=== PATIENT | male | born 1935 | race Caucasian/White ===

== ENCOUNTER 2025-04-02 06:56 | Emergency (ER) | payer MEDICARE, SELFPAY ==
[2025-04-02] VITALS (7 sets, daily range): BP systolic 111–168; BP diastolic 56–87; BMI 18.9
--- NOTE | 2025-04-02 07:41 | ED.GENMED ---
History of Present Illness
<CONSTANCE Espino - Last Filed: 04/02/25 14:35>
General
Chief Complaint: Male Genito-Urinary Symptoms
Source: patient
Exam Limitations: none
Time Seen by Provider: 04/02/25 06:59
History of Present Illness
History of Present Illness:
89 yr old male with PMH of dementia, enlarge prostate , s/p recent fall (upper trochanter fx surg not required )in March, catheter since Mar 12 removed Mar 20 however reinserted March 21 as due to urinary retention presents from [facility]. Pt was sent for evaluation after he pulled his Hummel catheter on his own. I spoke with Tamara, his daughter over the phone ) . pt with significant dementia currently at this this facility however they are planning on relocating
patient to a facility closer to their home town.
Patient is on blood thinners
Phy Exam
<CONSTANCE Espino - Last Filed: 04/02/25 14:35>
General Physical Exam
General Presentation: no apparent distress
General age: appears stated age
General Skin: warm and dry
General Habitus: elderly
General Mental: confused
General Hydration: appears well hydrated
Cardiovascular Exam
Cardiovascular Exam: regular rate/rhythm, no murmur and normal peripheral pulses
Pulmonary Exam
Pulmonary Exam: lungs clear and no respiratory distress
Genitourinary Exam Male
Exam Male: other (pt presents with catheter removed + small bright red blood at meatus. no Active bleeding )
Neurological Exam
Neurological Exam: alert
Musculoskeletal Exam
Musculoskeletal Exam: full ROM
Skin Exam
Skin Exam: normal color and warm/dry
Psychiatric Exam
Psychiatric Exam: normal mood/affect
Course
<CONSTANCE Espino - Last Filed: 04/02/25 14:35>
Orders/Labs/Results
Orders:
Orders
04/02/25 07:34
Hummel Placement- Treatment ONCE
Reason for insertion: Chronic Hummel on Admit
04/02/25 09:51
Bladder Scan- Treatment ONCE
Vital Signs
Initial and Last Documented VS:
Initial Vital Signs
Pulse Resp BP Pulse Ox
65 23 115/60 98
04/02/25 07:00 04/02/25 07:00 04/02/25 07:00 04/02/25 07:00
Last Documented Vital Signs
Temp Pulse Resp BP Pulse Ox
97.8 F 84 20 168/74 99
04/02/25 07:02 04/02/25 12:00 04/02/25 12:00 04/02/25 12:00 04/02/25 07:46
Director Of Strategic Programs consulted with Physician
Director Of Strategic Programs consulted with physician?: Yes
Name of Physician Consulted: Chantelh
<Mike Medellin MD - Last Filed: 04/02/25 19:23>
Orders/Labs/Results
Orders:
Orders
04/02/25 07:34
Hummel Placement- Treatment ONCE
Reason for insertion: Chronic Hummel on Admit
04/02/25 09:51
Bladder Scan- Treatment ONCE
Vital Signs
Initial and Last Documented VS:
Initial Vital Signs
Pulse Resp BP Pulse Ox
65 23 115/60 98
04/02/25 07:00 04/02/25 07:00 04/02/25 07:00 04/02/25 07:00
Last Documented Vital Signs
Temp Pulse Resp BP Pulse Ox
97.8 F 84 20 168/74 99
04/02/25 07:02 04/02/25 12:00 04/02/25 12:00 04/02/25 12:00 04/02/25 07:46
<CONSTANCE Espino - Last Filed: 04/02/25 14:35>
MDM/Problems Addressed
Differential Diagnosis Includes:
not limited to: hummel catheter dysfunction
MDM/Problems Addressed:
As documented patient is a 89-year-old male with dementia from [facility]. Patient was sent for evaluation of removal of his Hummel catheter. I reviewed patient's med list directly, patient is not anticoagulated.
I [facility] who reports patient had a one-to-one and had gloves initially on but the lathing supervisor remove them and while walking to the bathroom he pulled out his Hummel catheter. He presents awake however very confused. I
spoke with his daughter over the phone. She is aware of this dementia. He had a Hummel placed ever since having a hip injury in March.
Case reviewed with ED physician we attempted to have patient void on his own however he was not able to do so. Hummel catheter was reinserted however I did speak with nursing care facility along with daughter. As per the nursing care facility
daughter will have to arrange appointment with urology. I did speak with daughter stating that this is important to have possibly a void trial to see if patient can void on his own and therefore have the Hummel catheter eventually discontinued to
prevent UTI. They are trying to get patient moved from his present facility to a facility closer to family and daughter will have patient follow-up with urologist closer to their hometown. He is afebrile with stable vital signs.
<CONSTANCE Espino - Last Filed: 04/02/25 14:35>
*Pulse Oximetry
SaO2: 99
Oxygen Mode of Delivery: Room air
Patient hypoxic: no
*Critical Care Note
Total Time (30-74mins, 75-104mins- exclusive of procedures): Not Applicable
ED Attending Note
<CONSTANCE Espino - Last Filed: 04/02/25 14:35>
-
Portions of this chart may have been created with voice recognition software.� Occasional wrong word or��sound alike� substitutions may have occurred due to the inherent limitations of voice recognition software.
<Mike Medellin MD - Last Filed: 04/02/25 19:23>
ED Attending Note
Patient seen and examined by attending physician: Yes
ED Attending Note:
Patient with history of dementia, recent hip fracture, treated nonoperatively, presents to ED for evaluation after patient noted to pull Hummel catheter out while having bowel movement this morning. Upon arrival, patient is alert and awake, but does
not offer any additional information. Patient does not take any blood thinning medications.
Physical Exam
General: no apparent distress, not acutely ill. afebrile
Head: nc/at.
Neck: supple. normal range of motion
Abdomen: normal bowel sounds. not tender.
: scant amount of blood clots noted at penile head, without active bleeding. no scrotal/penile swelling noted
Neuro: alert and awake. no focal neurological deficits
Skin: no rash
Psychiatric: well kept.
Extremities: no edema. no calf tenderness.
Pt not able to urinate despite oral hydration. After discussion with daughter, decision made to re-insert hummel catheter. Daughter will make an arrangement for outpatient f/u with urology
Discharge Plan
Departure
Patient Disposition: Home (Routine Discharge)
Date of Disposition: 04/02/25
Time of Disposition: 12:16
Patient with high blood pressure during this ER visit?: No
Condition: Fair
Covid-19: Not Applicable
Discharge Problem:
encounter for hummel catheter problem
Instructions: How to Care for Your Hummel Catheter, Male
Referrals:
Oliver Mcneil MD [Active, Urology]
UNKNOWN - PT NOT,INTERVIEWE [Family Provider]
Activity Restrictions/Additional Instructions:
As discussed a new Hummel was inserted however patient will need to be seen by urology to try to do a void challenge to have his catheter removed.
Return if any worsening of symptoms
Interventions
Interventions:
*Risk Screen - Suicide Last Done: 04/02/25 07:02
*General Assessment Last Done: 04/02/25 07:02
*Neglect/Abuse Screening Last Done: 04/02/25 07:02
*ED- Fall Risk Assessment Last Done: 04/02/25 07:02
*ED COVID-19 Vaccine History Last Done: 04/02/25 07:02
*Nursing Disposition Last Done: 04/02/25 13:32
ED-Male Genitourinary Assessment Last Done: 04/02/25 07:35
Discharge Date and Time
Discharge Date/Time: 04/02/25 13:39
Print Language: AZERI
--- NOTE | 2025-04-02 10:57 | CM ---
I called [facility] [phone] and spoke to the nurse Nunu. Per Nunu, Roderick did have a 1:1 with him when he pulled the hummel catheter out. Nunu also said he has mittens they were using for his safety but they had been removed.
Nunu told me they are not allowed to replace the hummel catheter, if he removes it again he will be sent back to the ED for replacement. Discussed with Marie EDWARDS.
== END 2025-04-02 13:39 | disposition home or self-care (01) ==
LOC: EMR 06:56
PROVIDERS: EMERGENCY PHYSICIAN Emergency Medicine
DX: T83.9XXA Unspecified complication of genitourinary prosthetic device, implant and graft, initial encounter (principal); Y84.6 Urinary catheterization as the cause of abnormal reaction of the patient, or of later complication, without mention of misadventure at the time of the procedure; N40.0 Benign prostatic hyperplasia without lower urinary tract symptoms; F03.90 Unspecified dementia, unspecified severity, without behavioral disturbance, psychotic disturbance, mood disturbance, and anxiety; Z79.01 Long term (current) use of anticoagulants
CPT/HCPCS: 51702; 99283